=== PATIENT | female | born 1975 | race Caucasian/White ===

== ENCOUNTER 2016-12-03 07:52 | Emergency (ER) | payer MEDICAID ==
[2016-12-03] MEDS ORDERED: ADENOSINE 6 MG/2 ML VIAL IVP ONE (08:14)
[2016-12-03] MEDS ORDERED: ADENOSINE 6 MG/2 ML VIAL IVP STA (08:15)
--- NOTE | 2016-12-03 08:19 | ED Physician Documentation ---
History of Present Illness - Stated complaint Stated Complaint: RAPID HEART RATE - Chief complaint Chief Complaint: Cardiac - History obtained from History obtained from: Patient, Family - History of Present Illness Timing: Enter time (0700), Today - Additonal information Additional information: 41 y/o female with a history of SVT has been out of her verapamil for the past 2 weeks and this morning she developed palpitations consistent with what she has had with SVT. She had a recent episode of SVT and was treated at [facility]. At that time she had about 2 pills left of her verapamil and she was expecting to see her PMD but because of an insurance issue she was not able to be seen. Review of Systems Constitutional: denies: Fever Eyes: denies: Decreased vision Ears: denies: Ear pain Nose: denies: Congestion Throat: denies: Sore throat Cardiac: reports: Palpitations. 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 HEENT: Tonsil/Adenoidectomy - Present Medications Home Medications: Ambulatory Orders Medication Instructions Recorded Confirmed Verapamil HCl [Verapamil ER Pm] 100 mg PO DAILY #20 cap24h.pct 11/01/15 12/03/16 Verapamil HCl [Verapamil ER] 120 mg PO DAILY #20 cap24h.pel 12/03/16 - Allergies Allergies/Adverse Reactions: Allergies Allergy/AdvReac Type Severity Reaction Status Date / Time No Known Drug Allergies Allergy Verified 11/01/15 10:55 - Social History Does the pt smoke?: No Smoking Status: Never smoker Does the pt drink ETOH?: No Does the pt have substance abuse?: No - Immunizations Immunizations are current?: Yes - POLST Patient has POLST: No PD ED PE NORMAL - Vitals Vital signs reviewed: Yes (tachy extreme) - General General: Alert and oriented X 3, No acute distress, Well developed/nourished - HEENT HEENT: Atraumatic, PERRL, EOMI - Neck Neck: Supple, no meningeal sign, No bony TTP - Cardiac Cardiac: No murmur, Other (tachy to 155) - Respiratory Respiratory: No respiratory distress, Clear bilaterally - Abdomen Abdomen: Soft, Non tender - Back Back: No CVA TTP, No spinal TTP - Derm Derm: Normal color, Warm and dry, No rash - Extremities Extremities: No deformity, No edema - Neuro Neuro: No motor deficit, No sensory deficit - Psych Psych: Normal mood, Normal affect Results - Vitals Vitals: Vital Signs - 24 hr 12/03/16 07:57 Temperature 36.5 C Heart Rate 166 H Respiratory 18 Rate Blood Pressure 103/69 O2 Saturation 98 Oxygen O2 Source Room air - EKG (time done) 0800 Rate: Rate (enter#) (160) Rhythm: SVT, SYLVIE Intervals: Prolonged FL, Prolonged QT (borderline ) Ischemia: ST depression (rate related. ) Compare to prior EKG: Changed from prior EKG (SPT 11-01-15 rate has increased) Computer interpretation: Agree with computer 0834 Rate: Rate (enter#) (90) Rhythm: NSR Compare to prior EKG: Changed from prior EKG (SPT earlier today the rhythm has converted to NSR ) Computer interpretation: Agree with computer - Labs Labs: Laboratory Tests 12/03/16 12/03/16 12/03/16 08:12 08:12 08:12 WBC 10.9 H RBC 4.65 Hgb 9.7 L Hct 32.1 L MCV 69.1 L MCH 20.8 L MCHC 30.1 L RDW 22.4 H Plt Count 314 MPV 9.8 Neut # 7.1 H Lymph # 2.5 [place] # 0.9 Eos # 0.3 Baso # 0.1 Absolute Nucleated RBC 0.00 Nucleated RBCs 0.0 Manual Slide Review Indicated Platelet Estimate NORMAL (130-450,000) RBC Morph Micro Appear 1+ ELIPTOCYTES Sodium 139 Potassium 3.8 Chloride 110 Carbon Dioxide 22 Anion Gap 7.0 BUN 15 Creatinine 0.6 Estimated GFR (MDRD) 111 Glucose 106 H Calcium 8.7 Magnesium Total Bilirubin < 0.2 L AST 17 ALT 12 Alkaline Phosphatase 54 Troponin I < 0.04 Total Protein 7.3 Albumin 3.8 Globulin 3.5 Albumin/Globulin Ratio 1.1 Lipase 24 Urine Color Urine Clarity Urine pH Ur Specific [place] Urine Protein Urine Glucose (UA) Urine Ketones Urine Occult Blood Urine Nitrite Urine Bilirubin Urine Urobilinogen Ur Leukocyte Esterase Ur Microscopic Review Urine Culture Comments Urine HCG, Qual 12/03/16 12/03/16 08:12 08:26 WBC RBC Hgb Hct MCV MCH MCHC RDW Plt Count MPV Neut # Lymph # [place] # Eos # Baso # Absolute Nucleated RBC Nucleated RBCs Manual Slide Review Platelet Estimate RBC Morph Micro Appear Sodium Potassium Chloride Carbon Dioxide Anion Gap BUN Creatinine Estimated GFR (MDRD) Glucose Calcium Magnesium 2.0 Total Bilirubin AST ALT Alkaline Phosphatase Troponin I Total Protein Albumin Globulin Albumin/Globulin Ratio Lipase Urine Color YELLOW Urine Clarity CLEAR Urine pH 6.0 Ur Specific [place] <=1.005 Urine Protein NEGATIVE Urine Glucose (UA) NEGATIVE Urine Ketones NEGATIVE Urine Occult Blood NEGATIVE Urine Nitrite NEGATIVE Urine Bilirubin NEGATIVE Urine Urobilinogen 0.2 (NORMAL) Ur Leukocyte Esterase NEGATIVE Ur Microscopic Review NOT INDICATED Urine Culture Comments NOT INDICATED Urine HCG, Qual NEGATIVE PD MEDICAL DECISION MAKING - ED course Complexity details: reviewed old records, reviewed results, re-evaluated patient , considered differential, d/w patient, d/w family ED course: 41 y/o female with a history of SVT has developed rapid heart rate this morning and she is administered adenosine 6mg IVP with conversion to NSR in the 80's and 90's. She is administered magnesium 2gm IVP. Departure - Departure Disposition: 01 Home, Self Care Clinical Impression: Supraventricular tachycardia Condition: Stable Instructions: ED Tachycardia Pat PSVT Follow-Up: [facility] [Provider Group] Prescriptions: Verapamil HCl [Verapamil ER] 120 mg PO DAILY #20 [email or web address].pel
[2016-12-03] MEDS ORDERED: MAGNESIUM SULFATE 2 GRAM 50 ML IV ONE ×2 (08:30)
[2016-12-03 08:48] LABS: ALBUMIN/GLOBULIN RATIO 1.1 (1.0-2.2); BILIRUBIN,TOTAL < 0.2 mg/dL (0.2-1.0); BUN - BLOOD UREA NITROGEN 15 mg/dL (6-20); CALCIUM 8.7 mg/dL (8.5-10.3); CARBON DIOXIDE - CO2 22 mmol/L (21-32); CHLORIDE 110 mmol/L (101-111); CREATININE 0.6 mg/dL (0.4-1.0); GFR - MDRD 111 (>89); GLUCOSE 106 mg/dL (70-100); LIPASE 24 U/L (22-51); POTASSIUM 3.8 mmol/L (3.5-5.0); SODIUM 139 mmol/L (135-145); TOTAL PROTEIN 7.3 g/dL (6.7-8.2)
[2016-12-03 08:50] LABS: BASOPHILS # (AUTO) 0.1 10^3/uL (0.0-0.1); BASOPHILS % (AUTO) 1.1 %; EOSINOPHILS # (AUTO) 0.3 10^3/uL (0.0-0.7); EOSINOPHILS % (AUTO) 2.7 %; HCT - HEMATOCRIT 32.1 % (37.0-47.0); HGB - HEMOGLOBIN 9.7 g/dL (12.0-16.0); LYMPHOCYTES # (AUTO) 2.5 10^3/uL (1.5-3.5); LYMPHOCYTES % (AUTO) 22.6 %; MEAN CORPUSCULAR HEMOGLOBIN 20.8 pg (27.0-31.0); MEAN CORPUSCULAR HGB CONC 30.1 g/dL (32.0-36.0); MEAN CORPUSCULAR VOLUME 69.1 fL (81.0-99.0); MEAN PLATELET VOLUME 9.8 fL (7.9-10.8); MONOCYTES # (AUTO) 0.9 10^3/uL (0.0-1.0); MONOCYTES % (AUTO) 8.1 %; NEUTROPHILS # (AUTO) 7.1 10^3/uL (1.5-6.6); NEUTROPHILS % (AUTO) 65.5 %; RED BLOOD COUNT 4.65 10^6/uL (4.20-5.40); RED CELL DISTRIBUTION WIDTH 22.4 % (12.0-15.0); UNCORRECTED WHITE BLOOD COUNT 10.9 x10^3/uL; WHITE BLOOD COUNT 10.9 x10^3/uL (4.8-10.8)
[2016-12-03 09:08] LABS: BILIRUBIN,URINE NEGATIVE (NEGATIVE)
[2016-12-03 09:12] LABS: HCG UR QUAL NEGATIVE; UA CHARGE (STRIP ONLY) YES; UR CULTURE IF IND NOT INDICATED
[2016-12-03 09:20] LABS: PLATELET ESTIMATE, MANUAL NORMAL (130-450,000) (NORMAL)
[2016-12-03 10:07] VITALS: BP 101/61
== END 2016-12-03 10:13 | disposition home or self-care (01) ==
LOC: ED 07:52
DX: I47.1 Supraventricular tachycardia (principal); T46.1X6A Underdosing of calcium-channel blockers, initial encounter; Z91.138 Patient's unintentional underdosing of medication regimen for other reason
CPT/HCPCS: 36415; 80053; 81003; 81025; 83690; 83735; 84484; 85025; 93005; 93010; 96374; 96375; 99284; J0153; 81001; 87086

== ENCOUNTER 2016-12-28 11:00 | Outpatient (CLI) | payer MEDICAID | END 2016-12-28 11:15 | disposition home or self-care (01) | LOC: RT.N 11:00 | PROVIDERS: ATTEND Family Medicine | DX: I47.1 Supraventricular tachycardia (principal) | CPT/HCPCS: 93005 ==

== ENCOUNTER 2017-01-10 00:24 | Emergency (ER) | payer MEDICAID ==
[2017-01-10] MEDS ORDERED: ADENOSINE 6 MG/2 ML VIAL IVP ONE (00:36)
[2017-01-10] MEDS ORDERED: ADENOSINE 6 MG/2 ML VIAL IVP STA (00:38)
[2017-01-10] MEDS ORDERED: MAGNESIUM SULFATE 2 GRAM 50 ML IV ONE ×2 (00:39→00:42)
[2017-01-10 00:46] LABS: BASOPHILS # (AUTO) 0.2 10^3/uL (0.0-0.1); EOSINOPHILS # (AUTO) 0.4 10^3/uL (0.0-0.7); EOSINOPHILS % (AUTO) 2.4 %; HCT - HEMATOCRIT 31.7 % (37.0-47.0); HGB - HEMOGLOBIN 9.5 g/dL (12.0-16.0); LYMPHOCYTES # (AUTO) 3.7 10^3/uL (1.5-3.5); LYMPHOCYTES % (AUTO) 21.6 %; MEAN CORPUSCULAR HGB CONC 30.1 g/dL (32.0-36.0); MEAN CORPUSCULAR VOLUME 69.7 fL (81.0-99.0); MEAN PLATELET VOLUME 9.2 fL (7.9-10.8); MONOCYTES # (AUTO) 1.3 10^3/uL (0.0-1.0); MONOCYTES % (AUTO) 7.6 %; NEUTROPHILS # (AUTO) 11.5 10^3/uL (1.5-6.6); NEUTROPHILS % (AUTO) 67.4 %; RED BLOOD COUNT 4.55 10^6/uL (4.20-5.40); RED CELL DISTRIBUTION WIDTH 19.4 % (12.0-15.0)
[2017-01-10 00:48] LABS: BILIRUBIN,URINE NEGATIVE (NEGATIVE)
[2017-01-10 00:49] LABS: UA w/ MICROSCOPIC CHARGE YES
[2017-01-10 00:56] LABS: ALBUMIN/GLOBULIN RATIO 1.1 (1.0-2.2); BILIRUBIN,TOTAL 0.5 mg/dL (0.2-1.0); CALCIUM 9.1 mg/dL (8.5-10.3); CREATININE 0.7 mg/dL (0.4-1.0); POTASSIUM 3.8 mmol/L (3.5-5.0)
[2017-01-10 01:09] LABS: UR CULTURE IF IND NOT INDICATED; WBC,URINE 0-3 /HPF (0-5)
[2017-01-10 01:26] LABS: PLATELET ESTIMATE, MANUAL NORMAL (130-450,000) (NORMAL); PLATELET MORPHOLOGY NORMAL APPEARANCE (NORMAL)
--- NOTE | 2017-01-10 01:28 | ED Physician Documentation ---
History of Present Illness - Stated complaint Stated Complaint: RAPID HEART RATE - Chief complaint Chief Complaint: Cardiac - History obtained from History obtained from: Patient, Family - History of Present Illness Timing: Today - Additonal information Additional information: woke up with rapid heart rate and this has not responded to valsalva maneuvers and she comes to the hospital with her mother. She has had this a number of times, and we have converted her with adenosine. She is on some verapamil and this has helped in the past and she has tried a beta aditya and she did not tolerate this. She has made an appointment to see the regional extension service specialist at the end of January. She indicates that this evening before coming to the hospital she did bite the verapamil and take it without resolution of her symptoms. She has started her menses and this has happened previously under similar circumstances. Review of Systems Constitutional: denies: Fever, Chills, Myalgias, Fatigue Eyes: denies: Decreased vision Ears: denies: Ear pain Nose: denies: Rhinorrhea / runny nose, Congestion Throat: denies: Sore throat Cardiac: reports: Palpitations. denies: Chest pain / pressure Respiratory: denies: Dyspnea, Cough GI: denies: Abdominal Pain, Nausea, Vomiting : reports: Frequency. 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 HEENT: Tonsil/Adenoidectomy - Present Medications Home Medications: Ambulatory Orders Medication Instructions Recorded Confirmed Verapamil HCl [Verapamil ER Pm] 100 mg PO DAILY #20 cap24h.pct 11/01/15 12/03/16 Verapamil HCl [Verapamil ER] 120 mg PO DAILY #20 cap24h.pel 12/03/16 - Allergies Allergies/Adverse Reactions: Allergies Allergy/AdvReac Type Severity Reaction Status Date / Time No Known Drug Allergies Allergy Verified 01/10/17 00:59 - Social History Does the pt smoke?: No Smoking Status: Never smoker Does the pt drink ETOH?: No Does the pt have substance abuse?: No - Immunizations Immunizations are current?: Yes - POLST Patient has POLST: No PD ED PE NORMAL - Vitals Vital signs reviewed: Yes (tachy ) - General General: Alert and oriented X 3, No acute distress, Well developed/nourished - HEENT HEENT: Atraumatic, PERRL - Neck Neck: Supple, no meningeal sign, No bony TTP - Cardiac Cardiac: No murmur, Other (tachy to 150 and regular ) - Respiratory Respiratory: No respiratory distress, Clear bilaterally - Abdomen Abdomen: Soft, Non tender - Back Back: No CVA TTP, No spinal TTP - Derm Derm: Normal color, Warm and dry, No rash - Extremities Extremities: No deformity, No edema - Neuro Neuro: No motor deficit, No sensory deficit - Psych Psych: Normal mood, Normal affect Results - Vitals Vitals: Vital Signs - 24 hr 01/10/17 01/10/17 01/10/17 00:25 00:31 00:43 Temperature 36.4 C L Heart Rate 158 H 178 H 95 Respiratory 16 18 11 L Rate Blood Pressure 120/59 L 134/84 H 122/68 O2 Saturation 98 99 100 01/10/17 01/10/17 01/10/17 00:48 00:50 01:03 Temperature Heart Rate 100 93 93 Respiratory 17 16 15 Rate Blood Pressure 121/68 121/68 109/67 O2 Saturation 97 97 97 01/10/17 01/10/17 01:37 01:51 Temperature Heart Rate 84 84 Respiratory 15 16 Rate Blood Pressure 110/60 110/60 O2 Saturation 99 99 Oxygen O2 Source Room air - EKG (time done) 0035 Rate: Rate (enter#) (149) Rhythm: Other (junctional tachydardia) Intervals: Prolonged QT (borderline) Compare to prior EKG: Changed from prior EKG (SPT 12-03-16 rate has increased and rhythm has changed. ) Computer interpretation: Agree with computer 0053 Rate: Rate (enter#) (93) Rhythm: NSR Compare to prior EKG: Changed from prior EKG (rate and rhythm have changed to sinus) Computer interpretation: Agree with computer - Labs Labs: Laboratory Tests 01/10/17 01/10/17 01/10/17 00:30 00:35 00:35 WBC 17.0 H RBC 4.55 Hgb 9.5 L Hct 31.7 L MCV 69.7 L MCH 21.0 L MCHC 30.1 L RDW 19.4 H Plt Count 340 MPV 9.2 Neut # 11.5 H Lymph # 3.7 H Long # 1.3 H Eos # 0.4 Baso # 0.2 H Absolute Nucleated RBC 0.00 Nucleated RBCs 0.0 Manual Slide Review Indicated Platelet Estimate NORMAL (130-450,000) Platelet Morphology NORMAL APPEARANCE RBC Morph Micro Appear 1+ STOMATOCYTES Sodium 138 Potassium 3.8 Chloride 105 Carbon Dioxide 25 Anion Gap 8.0 BUN 13 Creatinine 0.7 Estimated GFR (MDRD) 93 Glucose 111 H Calcium 9.1 Total Bilirubin 0.5 AST 21 ALT 13 Alkaline Phosphatase 67 Troponin I Total Protein 8.0 Albumin 4.2 Globulin 3.8 Albumin/Globulin Ratio 1.1 Lipase 26 Urine Color LT. YELLOW Urine Clarity CLEAR Urine pH 7.0 Ur Specific [place] <=1.005 Urine Protein NEGATIVE Urine Glucose (UA) NEGATIVE Urine Ketones NEGATIVE Urine Occult Blood LARGE H Urine Nitrite NEGATIVE Urine Bilirubin NEGATIVE Urine Urobilinogen 0.2 (NORMAL) Ur Leukocyte Esterase NEGATIVE Urine RBC None Seen Urine WBC 0-3 Ur Squamous Epith Cells RARE Squamous Urine Bacteria None Seen Ur Microscopic Review INDICATED Urine Culture Comments NOT INDICATED 01/10/17 00:35 WBC RBC Hgb Hct MCV MCH MCHC RDW Plt Count MPV Neut # Lymph # [place] # Eos # Baso # Absolute Nucleated RBC Nucleated RBCs Manual Slide Review Platelet Estimate Platelet Morphology RBC Morph Micro Appear Sodium Potassium Chloride Carbon Dioxide Anion Gap BUN Creatinine Estimated GFR (MDRD) Glucose Calcium Total Bilirubin AST ALT Alkaline Phosphatase Troponin I < 0.04 Total Protein Albumin Globulin Albumin/Globulin Ratio Lipase Urine Color Urine Clarity Urine pH Ur Specific [place] Urine Protein Urine Glucose (UA) Urine Ketones Urine Occult Blood Urine Nitrite Urine Bilirubin Urine Urobilinogen Ur Leukocyte Esterase Urine RBC Urine WBC Ur Squamous Epith Cells Urine Bacteria Ur Microscopic Review Urine Culture Comments PD MEDICAL DECISION MAKING - ED course Complexity details: reviewed old records, reviewed results, re-evaluated patient , considered differential, d/w patient, d/w family ED course: 41 y/o female with a history of SVT has SVT again today with a rate up to 160. She is administered IV adenosine 6mg with conversion to sinus. Her WBC was elevated without specific reason uncovered here. Departure - Departure Disposition: 01 Home, Self Care Clinical Impression: Supraventricular tachycardia Instructions: ED Tachycardia Pat PSVT Follow-Up: Ansley Early ARNP [Primary Care Provider] - Comments: Call the regional extension service specialist's office to see if you can get in to be seen earlier than the end of January. Discharge Date/Time: 01/10/17 01:50
[2017-01-10 01:37] VITALS: BP 110/60
== END 2017-01-10 01:50 | disposition home or self-care (01) ==
LOC: ED 00:24
DX: I47.1 Supraventricular tachycardia (principal)
CPT/HCPCS: 36415; 80053; 81001; 83690; 84484; 85025; 93005; 93010; 96365; 96375; 99284; 99285; J0153; 81003; 87086

== ENCOUNTER 2017-01-17 11:01 | Emergency (ER) | payer MEDICAID ==
[2017-01-17] MEDS ORDERED: ASPIRIN CHEW 81 MG TABLET PO STA (11:13)
[2017-01-17] MEDS ORDERED: ASPIRIN CHEW 81 MG TABLET ONE (11:14)
--- NOTE | 2017-01-17 11:14 | ED Physician Documentation ---
History of Present Illness - Stated complaint Stated Complaint: RAPID HR - Chief complaint Chief Complaint: Cardiac - History obtained from History obtained from: Patient - History of Present Illness Timing: Last night - Additonal information Additional information: The patient is a 41-year-old female who presents with intermittent palpitations. She noticed rapid heart rate intermittently through the night, with associated mild chest tightness, mild shortness of breath, and mild nausea. She denies vomiting or fever. She has a history of SVT, and was seen here one week ago with SVT that was converted with adenosine. She was first diagnosed with SVT and April 2014, and has been treated with verapamil. She denies any recent fever, cough, or dietary changes. She has an appointment scheduled with a audio visual collections coordinator next month. Her TSH has been checked in the past, and has been within the normal range. Review of Systems Constitutional: denies: Fever Nose: denies: Congestion Throat: denies: Sore throat Cardiac: reports: Palpitations. 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 HEENT: Tonsil/Adenoidectomy - Present Medications Home Medications: Ambulatory Orders Medication Instructions Recorded Confirmed Verapamil HCl [Verapamil ER] 120 mg PO DAILY #20 [email or web address].pel 12/03/16 01/17/17 Metoprolol Succinate 25 mg PO DAILY #30 tab.er.24h 01/17/17 - Allergies Allergies/Adverse Reactions: Allergies Allergy/AdvReac Type Severity Reaction Status Date / Time No Known Drug Allergies Allergy Verified 01/17/17 11:08 - Social History Does the pt smoke?: No Smoking Status: Never smoker Does the pt drink ETOH?: No Does the pt have substance abuse?: No - Immunizations Immunizations are current?: Yes - POLST Patient has POLST: No PD ED PE NORMAL - Vitals Vital signs reviewed: Yes (heart rate in the 90s.) - General General: Alert and oriented X 3, Well developed/nourished - HEENT HEENT: Atraumatic, EOMI, Pharynx benign - Neck Neck: No adenopathy, No JVD - Cardiac Cardiac: RRR, No murmur - Respiratory Respiratory: No respiratory distress, Clear bilaterally - Abdomen Abdomen: Soft, Non tender - Back Back: No CVA TTP - Derm Derm: No rash - Extremities Extremities: No edema, No calf tenderness / cord - Neuro Neuro: Alert and oriented X 3, No motor deficit, Normal speech Results - Vitals Vitals: Oxygen O2 Source Room air - EKG (time done) 11:17 Rate: Rate (enter#) (87) Rhythm: NSR [place]: Normal Intervals: Normal NV QRS: Normal Ischemia: Normal ST segments Compare to prior EKG: Unchanged from prior EKG Computer interpretation: Agree with computer - Labs Labs: Laboratory Tests 01/17/17 01/17/17 01/17/17 11:23 11:23 11:23 WBC 11.0 H RBC 4.34 Hgb 9.1 L Hct 29.7 L MCV 68.6 L MCH 21.0 L MCHC 30.7 L RDW 18.6 H Plt Count 340 MPV 9.2 Neut # 7.8 H Lymph # 2.1 [place] # 0.8 Eos # 0.2 Baso # 0.1 Absolute Nucleated RBC 0.00 Nucleated RBCs 0.0 Manual Slide Review Indicated RBC Morph Micro Appear 2+ ANISOCYTOSIS Sodium 137 Potassium 3.7 Chloride 104 Carbon Dioxide 25 Anion Gap 8.0 BUN 12 Creatinine 0.6 Estimated GFR (MDRD) 111 Glucose 104 H Calcium 9.3 Total Bilirubin 0.4 AST 15 ALT 10 Alkaline Phosphatase 64 Troponin I < 0.04 Total Protein 7.8 Albumin 4.1 Globulin 3.7 Albumin/Globulin Ratio 1.1 Lipase 21 L PD MEDICAL DECISION MAKING - ED course Complexity details: reviewed old records, reviewed results, re-evaluated patient , considered differential, d/w patient, d/w family, d/w dynamics ax consultant ED course: The patient's presentation is consistent with paroxysmal supraventricular tachycardia, although this is not present in the emergency department. Her security project manager and electrocardiogram revealed normal sinus rhythm with a rate that was initially in the 90s but gradually came down to the 70s. Her CBC reveals anemia, with hemoglobin of 9.1, which is similar to all of her previous visits over the past 3 years. The patient had taken her verapamil prior to arrival, so no further rhythm controlling medication was administered in the emergency department. 4 baby aspirin were administered orally. I discussed her condition with Dr. Mendez, online marketer for cardiology, and she agrees that metoprolol may be a better choice for rate control, and advises changing from verapamil to metoprolol at 25 mg daily. She also advised that an outpatient heart monitor would be an advisable diagnostic study, which her primary physician could order. The patient is being discharged with prescription for metoprolol. I discussed with her and her male biostatistics manager the change in medication, importance of urgent outpatient follow-up, as well as potentially worrisome signs or symptoms that should prompt reevaluation in the emergency department. Departure - Departure Disposition: 01 Home, Self Care Clinical Impression: Paroxysmal atrial tachycardia, Palpitations Anemia Qualifiers: Anemia type: unspecified type Qualified Code(s): D64.9 - Anemia, unspecified Condition: Stable Instructions: ED Tachycardia Pat PSVT Follow-Up: Ansley Early ARNP [Primary Care Provider] - Prescriptions: Metoprolol Succinate 25 mg PO DAILY #30 tab.er.24h Comments: Discontinue verapamil. Start metoprolol as prescribed. Follow up with your primary physician within one week. Call to schedule an appointment. Discuss with her placement of a Holter monitor. Return to the emergency department if you develop recurrent tachycardia, chest pain, shortness of breath, or otherwise worsening symptoms. Discharge Date/Time: 01/17/17 14:08
[2017-01-17 12:07] LABS: BASOPHILS # (AUTO) 0.1 10^3/uL (0.0-0.1); BASOPHILS % (AUTO) 0.5 %; EOSINOPHILS # (AUTO) 0.2 10^3/uL (0.0-0.7); EOSINOPHILS % (AUTO) 1.5 %; HCT - HEMATOCRIT 29.7 % (37.0-47.0); HGB - HEMOGLOBIN 9.1 g/dL (12.0-16.0); LYMPHOCYTES # (AUTO) 2.1 10^3/uL (1.5-3.5); LYMPHOCYTES % (AUTO) 19.3 %; MEAN CORPUSCULAR HGB CONC 30.7 g/dL (32.0-36.0); MEAN PLATELET VOLUME 9.2 fL (7.9-10.8); MONOCYTES # (AUTO) 0.8 10^3/uL (0.0-1.0); MONOCYTES % (AUTO) 7.6 %; NEUTROPHILS # (AUTO) 7.8 10^3/uL (1.5-6.6); NEUTROPHILS % (AUTO) 71.1 %; RED BLOOD COUNT 4.34 10^6/uL (4.20-5.40); RED CELL DISTRIBUTION WIDTH 18.6 % (12.0-15.0)
[2017-01-17 12:08] LABS: MEAN CORPUSCULAR VOLUME 68.6 fL (81.0-99.0)
[2017-01-17 12:14] LABS: ALBUMIN/GLOBULIN RATIO 1.1 (1.0-2.2); BILIRUBIN,TOTAL 0.4 mg/dL (0.2-1.0); CALCIUM 9.3 mg/dL (8.5-10.3); CREATININE 0.6 mg/dL (0.4-1.0); POTASSIUM 3.7 mmol/L (3.5-5.0); TOTAL PROTEIN 7.8 g/dL (6.7-8.2)
[2017-01-17 14:03] VITALS: BP 90/55
== END 2017-01-17 14:08 | disposition home or self-care (01) ==
LOC: ED 11:01
DX: I47.1 Supraventricular tachycardia (principal); D64.9 Anemia, unspecified
CPT/HCPCS: 36415; 80053; 83690; 84484; 85025; 93005; 99283; 99284; A9270

== ENCOUNTER 2017-01-19 11:15 | Outpatient (CLI) | payer MEDICAID | END 2017-01-19 11:30 | disposition home or self-care (01) | LOC: RT.N 11:15 | PROVIDERS: ATTEND Family Medicine | DX: I47.1 Supraventricular tachycardia (principal) | CPT/HCPCS: 93005 ==